=== PATIENT | female | born 1970 | race Caucasian/White ===

== ENCOUNTER → 2024-04-05 06:36 | Day surgery (SDC) | payer OTHER, SELFPAY | LOC: GI 06:36 | PROVIDERS: ATTENDING PHYSICIAN Internal Medicine Gastroenterology | DX: Z12.11 Encounter for screening for malignant neoplasm of colon (principal); K57.30 Diverticulosis of large intestine without perforation or abscess without bleeding; K64.0 First degree hemorrhoids; K62.89 Other specified diseases of anus and rectum; D12.3 Benign neoplasm of transverse colon | CPT/HCPCS: 45385; 88305 ==

== ENCOUNTER → 2024-04-06 16:20 | Outpatient (REF) | payer OTHER, SELFPAY | LOC: WDC 16:20 | PROVIDERS: ATTENDING PHYSICIAN Family Medicine | DX: Z12.31 Encounter for screening mammogram for malignant neoplasm of breast (principal) | CPT/HCPCS: 77063; 77067 ==

== ENCOUNTER → 2024-04-11 10:04 | Outpatient (REF) | payer OTHER, SELFPAY | LOC: WDC 10:04 | PROVIDERS: ATTENDING PHYSICIAN Family Medicine | DX: R92.8 Other abnormal and inconclusive findings on diagnostic imaging of breast (principal) | CPT/HCPCS: 76642 ==

== ENCOUNTER → 2024-04-20 07:28 | Outpatient (REF) | payer OTHER, SELFPAY | LOC: RAD 07:28 | PROVIDERS: ATTENDING PHYSICIAN Family Medicine | DX: K82.4 Cholesterolosis of gallbladder (principal) | CPT/HCPCS: 76700 ==

== ENCOUNTER 2024-06-01 06:22 | Day surgery (SDC) | payer OTHER, SELFPAY ==
[2024-06-01] VITALS (7 sets, daily range): BP systolic 79–111; BP diastolic 44–74; BMI 23.8
[2024-06-01] MEDS: TYLENOL 1000 MG PO (08:42)
[2024-06-01] MEDS: NORMOSOL-R 1000 IV (08:50)
== END 2024-06-01 13:23 | disposition home or self-care (01) ==
LOC: SDS 06:22
PROVIDERS: ATTENDING PHYSICIAN Surgery; FAMILY PHYSICIAN Family Medicine
DX: K62.0 Anal polyp (principal); K64.4 Residual hemorrhoidal skin tags
CPT/HCPCS: 46230; 88304

== ENCOUNTER → 2025-01-04 13:14 | Outpatient (REF) | payer OTHER, SELFPAY | LOC: WDC 13:14 | PROVIDERS: ATTENDING PHYSICIAN Family Medicine | DX: R92.8 Other abnormal and inconclusive findings on diagnostic imaging of breast (principal) | CPT/HCPCS: 76642; 77061; 77065 ==

== ENCOUNTER → 2025-04-04 09:44 | Outpatient (REF) | payer OTHER, SELFPAY | LOC: RAD 09:44 | PROVIDERS: ATTENDING PHYSICIAN Nurse Practitioner Women's Health; FAMILY PHYSICIAN Family Medicine | DX: R14.0 Abdominal distension (gaseous) (principal) | CPT/HCPCS: 76830; 76856 ==

== ENCOUNTER → 2025-08-08 16:52 | Outpatient (REF) | payer OTHER, SELFPAY | LOC: WDC 16:52 | PROVIDERS: ATTENDING PHYSICIAN Family Medicine | DX: Z12.31 Encounter for screening mammogram for malignant neoplasm of breast (principal) | CPT/HCPCS: 77063; 77067 ==

== ENCOUNTER → 2025-11-17 12:34 | Outpatient (REF) | payer OTHER, SELFPAY | LOC: RAD 12:34 | PROVIDERS: ATTENDING PHYSICIAN Family Medicine | DX: R05.1 Acute cough (principal) | CPT/HCPCS: 71046 ==